=== PATIENT | female | born 1980 | race Caucasian/White ===

== ENCOUNTER 2020-03-12 21:58 | Emergency (ER) | payer SELFPAY ==
--- NOTE | 2020-03-12 22:40 | ED Physician Documentation ---
History of Present Illness - Stated complaint Stated Complaint: LEG PX - Chief complaint Chief Complaint: Ext Problem - History obtained from History obtained from: Patient - Additonal information Additional information: 39-year-old female presents with a chief complaint of right leg pain Behind the knee worse with activity.Patient is concerned she could possibly have a deep vein thrombosis denies any trauma or chest pain or shortness of breath or any history of DVT or PE. Review of Systems Constitutional: reports: Reviewed and negative Eyes: reports: Reviewed and negative Ears: reports: Reviewed and negative Nose: reports: Reviewed and negative Throat: reports: Reviewed and negative Cardiac: reports: Reviewed and negative Respiratory: reports: Reviewed and negative GI: reports: Reviewed and negative : reports: Reviewed and negative Skin: reports: Reviewed and negative Musculoskeletal: reports: Extremity pain Neurologic: reports: Reviewed and negative Psychiatric: reports: Reviewed and negative Endocrine: reports: Reviewed and negative Immunocompromised: reports: Reviewed and negative PD PAST MEDICAL HISTORY - Present Medications Home Medications: Ambulatory Orders Medication Instructions Recorded Confirmed No Known Home Medications 03/12/20 03/12/20 - Allergies Allergies/Adverse Reactions: Allergies Allergy/AdvReac Type Severity Reaction Status Date / Time No Known Drug Allergies Allergy Verified 03/12/20 22:15 PD ED PE NORMAL - Vitals Vital signs reviewed: Yes - General General: Alert and oriented X 3, No acute distress, Well developed/nourished - HEENT HEENT: PERRL, Moist mucous membranes - Neck Neck: Supple, no meningeal sign - Cardiac Cardiac: RRR, No murmur, Strong equal pulses - Respiratory Respiratory: No respiratory distress, Clear bilaterally - Abdomen Abdomen: Normal bowel sounds, Soft, Non tender, Non distended - Back Back: No CVA TTP, No spinal TTP - Derm Derm: Normal color, Warm and dry, No rash - Extremities Extremities: No deformity, No tenderness to palpate, Normal ROM s pain, No edema, Other (Tenderness posterior to the right popliteal fossa. No swelling no erythema no crepitus normal gait compartments are soft neurovascular intact) - Neuro Neuro: Alert and oriented X 3 - Psych Psych: Normal mood, Normal affect Results - Vitals Vitals: Vital Signs - 24 hr 03/12/20 03/13/20 22:13 00:08 Temperature 36.5 C Heart Rate 98 83 Respiratory 19 18 Rate Blood Pressure 142/77 H 144/87 H O2 Saturation 99 100 Oxygen O2 Source Room air PD MEDICAL DECISION MAKING - ED course Complexity details: reviewed results (Ultrasound is negative for deep vein thrombosis.), re-evaluated patient, considered differential (Likely a popliteal or Hendrickson's cyst however will get ultrasound to rule out DVT.), d/w patient Departure - Departure Disposition: 01 Home, Self Care Clinical Impression: Popliteal cyst Qualifiers: Laterality: right Qualified Code(s): M71.21 - Synovial cyst of popliteal space [Hendrickson], right knee Condition: Stable Instructions: ED Cyst Hendrickson Follow-Up: your, doctor [Other] - Tomorrow Comments: please follow up with your primary care provider tomorrow for a recheck if possible. return to the emergency department with any concerns. Discharge Date/Time: 03/13/20 00:46
[2020-03-13 00:08] VITALS: BP 144/87
--- NOTE | 2020-03-13 08:29 | Ultrasound Report ---
PROCEDURE: Duplex Ext Veins Right INDICATIONS: right lower extremity pain and swelling TECHNIQUE: Real-time imaging, as well as color and pulse Doppler interrogation, were performed of the lower extr emity deep veins from the inguinal ligament to the popliteal fossa. COMPARISON: None. FINDINGS: The deep veins are normally compressible, and free of intraluminal thrombus. Color and pu lse Doppler demonstrate normal phasic intraluminal flow. There is normal augmentation response to di stal compression maneuver. There is a presumed Hendrickson's cyst measuring 5.2 x 2.2 x 4.1 cm. IMPRESSION: No evidence of deep venous thrombosis. Hendrickson's cyst Findings are concordant with the preliminary study interpretation provided at the time of the study. Reviewed by: Justin Mendez MD on 03/13/2020 8:28 AM PDT Approved by: Justin Mendez MD on 03/13/2020 8:28 AM PDT Station ID: [id number]
== END 2020-03-13 00:46 | disposition home or self-care (01) ==
LOC: ED 21:58
DX: M71.21 Synovial cyst of popliteal space [Baker], right knee (principal)
CPT/HCPCS: 99282; 99284